=== PATIENT | female | born 1945 | race Caucasian/White ===

== ENCOUNTER 2021-10-29 18:37 | Inpatient (IN) | payer BC ==
[~2021-10-29] VITALS: Ht 165.1 cm; Wt 72.6 kg
[2021-10-29] MEDS ORDERED: BP MEDICATION (18:47)
[2021-10-29 19:22] LABS: HEMATOCRIT 41.6 % (31.2-41.9); MEAN CORPUSCULAR HEMOGLOBIN 28.4 uug (24.7-32.8); MEAN CORPUSCULAR VOLUME 85.3 fL (75.5-95.3); PLATELET COUNT (AUTO) 267 K/uL (179-408)
[2021-10-29 19:42] LABS: ALANINE AMINOTRANSFERASE 77 U/L (14-59); ALKALINE PHOSPHATASE 73 U/L (50-136); ASPARTATE AMINOTRANSFERASE 184 U/L (15-37); BILIRUBIN,DIRECT 0.2 mg/dL (0.0-0.2); BILIRUBIN,TOTAL 0.5 mg/dL (0.2-1.0); CARBON DIOXIDE 26 mmol/L (21-32); CHLORIDE 108 mmol/L (98-107); CREATININE 3.1 mg/dL (0.6-1.3); GLUCOSE 168 mg/dL (74-106); POTASSIUM 3.4 mmol/L (3.5-5.1); TOTAL PROTEIN, SERUM 8.8 g/dL (6.4-8.2)
[2021-10-29 20:07] LABS: UREA NITROGEN, BLOOD 123 mg/dL (7-18)
[2021-10-29] MEDS ORDERED: CEFEPIME HCL 1 G VIAL ONE (21:44)
[2021-10-29] MEDS ORDERED: VANCOMYCIN 1G/D5W 200 ML PIGGYBACK IV ONE ×2 (21:45→22:30)
[2021-10-29] MEDS ORDERED: CEFEPIME HCL 1 G in IV DEXTROSE 5% 50 ML IV ONE (21:45)
[2021-10-29] MEDS ORDERED: IV NS 1000 ML 1,000 ML IV ONE (21:45)
[2021-10-29] MEDS ORDERED: ONDANSETRON 4 MG/2 ML VIAL IV PRN (23:15)
[2021-10-29] MEDS ORDERED: ACETAMINOPHEN 325 MG TABLET PO PRN (23:15)
[2021-10-29] MEDS ORDERED: MAGNESIUM HYDROXIDE 30 ML LIQUID UDC PO PRN (23:15)
[2021-10-29] MEDS ORDERED: MORPHINE SULFATE 2 MG/1 ML DISP.SYRIN IV PRN (23:15)
[2021-10-29] MEDS ORDERED: LORAZEPAM 2 MG/1 ML VIAL IV PRN (23:30)
[2021-10-30 01:55] VITALS: BP 146/70
[2021-10-30] MEDS ORDERED: CLINDAMYCIN HCL 150 MG CAPSULE ONE (03:58)
[2021-10-30] MEDS ORDERED: CLINDAMYCIN PHOSPHATE 600 MG/4 ML VIAL ONE (03:59)
[2021-10-30 04:10] VITALS: BP 130/58
[2021-10-30] MEDS ORDERED: CLINDAMYCIN PHOSPHATE IV 600 MG in IV DEXTROSE 5% 100 ML IV SCH (06:00)
[2021-10-30 06:45] LABS: MEAN CORPUSCULAR HEMOGLOBIN 28.3 uug (24.7-32.8); PLATELET COUNT (AUTO) 232 K/uL (179-408)
[2021-10-30 07:03] LABS: CARBON DIOXIDE 25 mmol/L (21-32); CHLORIDE 113 mmol/L (98-107); CREATININE 2.7 mg/dL (0.6-1.3); GLUCOSE 173 mg/dL (74-106); MAGNESIUM 3.2 mg/dL (1.8-2.4); PHOSPHOROUS 4.5 mg/dL (2.5-4.9); POTASSIUM 3.4 mmol/L (3.5-5.1)
[2021-10-30 07:37] LABS: UREA NITROGEN, BLOOD 120 mg/dL (7-18)
[2021-10-30] MEDS ORDERED: VANCOMYCIN IV 500 MG in IV DEXTROSE 5% 100 ML IV ONE (08:00)
[2021-10-30] MEDS ORDERED: MORPHINE SULFATE 2 MG/1 ML DISP.SYRIN IV PRN (08:00)
[2021-10-30] MEDS ORDERED: PANTOPRAZOLE SODIUM 40 MG VIAL IV SCH (09:00)
[2021-10-30] MEDS ORDERED: POTASSIUM CHLORIDE 50 ML IV SCH (09:45)
[2021-10-30] MEDS: REMEDY ESSENTIAL ZINC PASTE 113 GM TOP SCH ×2 (10:06→20:23)
[2021-10-30] MEDS: HEPARIN SODIUM,PORCINE 5,000 UNITS/ML VIAL SQ SCH ×2 (10:18→20:23)
[2021-10-30] MEDS: CEFEPIME HCL 1 G in IV DEXTROSE 5% 50 ML IV SCH ×2 (10:19→21:09)
[2021-10-30 12:00] VITALS: BP 118/67
[2021-10-30] MEDS ORDERED: POTASSIUM CHLORIDE 20 MEQ TAB.PRT.SR PO ONE (12:30)
[2021-10-30] MEDS: CLINDAMYCIN PHOSPHATE IV 900 MG in IV DEXTROSE 5% 100 ML IV SCH ×2 (14:03→19:57)
[2021-10-30 16:00] VITALS: BP 123/61
[2021-10-30 20:18] VITALS: BP 133/61
[2021-10-31 00:09] VITALS: BP 115/60
[2021-10-31 04:21] VITALS: BP 120/60
[2021-10-31] MEDS: IV NS 1000 ML 1,000 ML IV PRN (05:25)
[2021-10-31] MEDS: CLINDAMYCIN PHOSPHATE IV 900 MG in IV DEXTROSE 5% 100 ML IV SCH (05:25)
[2021-10-31 06:52] LABS: HEMATOCRIT 33.6 % (31.2-41.9); MEAN CORPUSCULAR HEMOGLOBIN 28.2 uug (24.7-32.8); MEAN CORPUSCULAR VOLUME 85.9 fL (75.5-95.3); PLATELET COUNT (AUTO) 243 K/uL (179-408)
[2021-10-31 07:27] LABS: ALANINE AMINOTRANSFERASE 63 U/L (14-59); ALKALINE PHOSPHATASE 60 U/L (50-136); ASPARTATE AMINOTRANSFERASE 116 U/L (15-37); BILIRUBIN,TOTAL 0.4 mg/dL (0.2-1.0); CARBON DIOXIDE 25 mmol/L (21-32); CHLORIDE 116 mmol/L (98-107); CREATININE 2.4 mg/dL (0.6-1.3); GLUCOSE 132 mg/dL (74-106); MAGNESIUM 2.9 mg/dL (1.8-2.4); PHOSPHOROUS 2.9 mg/dL (2.5-4.9); POTASSIUM 3.6 mmol/L (3.5-5.1); TOTAL PROTEIN, SERUM 6.9 g/dL (6.4-8.2); VANCOMYCIN,RANDOM 12.5 ug/mL (18.0-26.0)
[2021-10-31 08:29] LABS: CREATINE KINASE, TOTAL 3320 U/L (26-192)
[2021-10-31] MEDS: CEFEPIME HCL 1 G in IV DEXTROSE 5% 50 ML IV SCH ×2 (08:53→20:51)
[2021-10-31] MEDS: PANTOPRAZOLE SODIUM 40 MG TABLET.DR PO SCH (08:53)
[2021-10-31] MEDS: REMEDY ESSENTIAL ZINC PASTE 113 GM TOP SCH ×2 (08:53→20:53)
[2021-10-31] MEDS: HEPARIN SODIUM,PORCINE 5,000 UNITS/ML VIAL SQ SCH ×2 (08:54→20:53)
[2021-10-31 09:42] LABS: UREA NITROGEN, BLOOD 107 mg/dL (7-18)
[2021-10-31 12:06] VITALS: BP 117/71
[2021-10-31] MEDS: VANCOMYCIN IV 750 MG in IV DEXTROSE 5% 250 ML IV SCH (12:58)
[2021-10-31 16:18] VITALS: BP 139/61
[2021-10-31 16:58] LABS: *AMPHETAMINE, URINE NEGATIVE (NEGATIVE); *CANNABINOID, URINE NEGATIVE (NEGATIVE); *COCCAINE, URINE NEGATIVE (NEGATIVE); *OPIATE, URINE NEGATIVE (NEGATIVE); *PHENCYCLIDINE SCREEN,URINE NEGATIVE (NEGATIVE)
[2021-10-31 17:04] LABS: *CREATININE,URINE 85.9 mg/dL (30-125); *URINE TOTAL PROTEIN RANDOM 89.3 mg/dL (<150/24HR)
[2021-10-31] MEDS: CLOTRIMAZOLE 1% CREAM 30 GM TUBE TOP SCH (17:35)
[2021-10-31 17:43] LABS: *BILIRUBIN,URIN NEGATIVE (NEGATIVE); *BLOOD, URINE 2+ (NEGATIVE); *CLARITY,URINE CLEAR (CLEAR); *COLOR,URINE YELLOW (YELLOW); *KETONES,URINE NEGATIVE (NEGATIVE); *UROBILINOGEN,URINE 0.2 E.U./dl (NORMAL); LEUKOCYTE ESTERASE ,URINE 3+ (NEGATIVE); NITRITE, URINE NEGATIVE (NEGATIVE); PH,URINE 5.5 (5.0-8.0); UGLUCOSE NEGATIVE (NEGATIVE)
[2021-10-31 20:00] VITALS: BP 145/72
[2021-10-31 20:23] LABS: BACTERIA,URINE MODERATE /HPF (NONE SEEN); SQUAMOUS EPITHELIAL CELL,UR FEW /HPF (NONE SEEN)
[2021-11-01] VITALS: BP 152/61
[2021-11-01 04:00] VITALS: BP_SYST 145; BP_SYST 157; BP_DIAS 61; BP_DIAS 92
[2021-11-01] MEDS: PANTOPRAZOLE SODIUM 40 MG TABLET.DR PO SCH (06:12)
[2021-11-01] MEDS: IV NS 1000 ML 1,000 ML IV PRN ×2 (06:28→12:18)
[2021-11-01 07:09] LABS: HEMATOCRIT 34.8 % (31.2-41.9); MEAN CORPUSCULAR VOLUME 85.9 fL (75.5-95.3); PLATELET COUNT (AUTO) 270 K/uL (179-408)
[2021-11-01 07:24] LABS: CARBON DIOXIDE 24 mmol/L (21-32); CHLORIDE 117 mmol/L (98-107); CREATININE 1.9 mg/dL (0.6-1.3); GLUCOSE 188 mg/dL (74-106); POTASSIUM 3.8 mmol/L (3.5-5.1); UREA NITROGEN, BLOOD 67 mg/dL (7-18)
[2021-11-01 07:39] LABS: MAGNESIUM 2.4 mg/dL (1.8-2.4); PHOSPHOROUS 2.5 mg/dL (2.5-4.9)
[2021-11-01] MEDS: CEFEPIME HCL 1 G in IV DEXTROSE 5% 50 ML IV SCH ×2 (08:38→20:30)
[2021-11-01] MEDS: HEPARIN SODIUM,PORCINE 5,000 UNITS/ML VIAL SQ SCH ×2 (08:39→20:35)
[2021-11-01] MEDS: CLOTRIMAZOLE 1% CREAM 30 GM TUBE TOP SCH ×2 (08:41→16:28)
[2021-11-01] MEDS: REMEDY ESSENTIAL ZINC PASTE 113 GM TOP SCH ×2 (08:42→20:38)
[2021-11-01] MEDS: VANCOMYCIN IV 750 MG in IV DEXTROSE 5% 250 ML IV SCH (12:03)
[2021-11-01 12:58] VITALS: BP 131/53
[2021-11-01 16:05] VITALS: BP 139/62
[2021-11-01 18:19] LABS: BAND % (MANUAL) 2 % (0-10); LYMPHOCYTES % (MANUAL) 21 % (20-40); MONOCYTES % (MANUAL) 9 % (2-10); NEUTROPHILS % (MANUAL) 68 % (42-75)
[2021-11-01 20:00] VITALS: BP 159/47
[2021-11-02] VITALS: BP 148/53
[2021-11-02] MEDS: IV NS 1000 ML 1,000 ML IV PRN ×3 (00:30→14:52)
[2021-11-02 04:53] VITALS: BP 155/78
[2021-11-02] MEDS: PANTOPRAZOLE SODIUM 40 MG TABLET.DR PO SCH (06:01)
[2021-11-02 06:55] LABS: HEMATOCRIT 34.4 % (31.2-41.9); MEAN CORPUSCULAR VOLUME 85.4 fL (75.5-95.3); PLATELET COUNT (AUTO) 296 K/uL (179-408)
[2021-11-02 07:09] LABS: CARBON DIOXIDE 24 mmol/L (21-32); CHLORIDE 117 mmol/L (98-107); CREATININE 1.6 mg/dL (0.6-1.3); GLUCOSE 163 mg/dL (74-106); POTASSIUM 4.2 mmol/L (3.5-5.1); UREA NITROGEN, BLOOD 49 mg/dL (7-18)
[2021-11-02] MEDS: CEFEPIME HCL 1 G in IV DEXTROSE 5% 50 ML IV SCH ×2 (08:09→21:58)
[2021-11-02] MEDS: CLOTRIMAZOLE 1% CREAM 30 GM TUBE TOP SCH ×2 (08:10→17:49)
[2021-11-02] MEDS: HEPARIN SODIUM,PORCINE 5,000 UNITS/ML VIAL SQ SCH ×2 (08:10→22:02)
[2021-11-02] MEDS: REMEDY ESSENTIAL ZINC PASTE 113 GM TOP SCH ×2 (08:11→21:00)
[2021-11-02] MEDS: VANCOMYCIN IV 750 MG in IV DEXTROSE 5% 250 ML IV SCH (11:55)
[2021-11-02 11:57] VITALS: BP 136/53
[2021-11-02 17:12] VITALS: BP 146/52
[2021-11-02 20:20] VITALS: BP 156/62
[2021-11-03 00:18] VITALS: BP 155/71
[2021-11-03 04:17] VITALS: BP 152/52
[2021-11-03] MEDS: IV NS 1000 ML 1,000 ML IV PRN ×2 (09:19→18:25)
[2021-11-03] MEDS: PANTOPRAZOLE SODIUM 40 MG TABLET.DR PO SCH (09:23)
[2021-11-03] MEDS: REMEDY ESSENTIAL ZINC PASTE 113 GM TOP SCH ×2 (09:24→20:57)
[2021-11-03] MEDS: CLOTRIMAZOLE 1% CREAM 30 GM TUBE TOP SCH ×2 (09:24→16:50)
[2021-11-03] MEDS: CEFEPIME HCL 1 G in IV DEXTROSE 5% 50 ML IV SCH ×2 (09:24→17:31)
[2021-11-03] MEDS: HEPARIN SODIUM,PORCINE 5,000 UNITS/ML VIAL SQ SCH ×2 (09:24→20:56)
[2021-11-03 10:07] LABS: A/G RATIO 0.6 (0.7-1.7); ALBUMIN 2.2 g/dL (2.9-4.4); ALPHA-1-GLOBULIN 0.4 g/dL (0.0-0.4); ALPHA-2-GLOBULIN 1.3 g/dL (0.4-1.0); BETA GLOBULIN 0.7 g/dL (0.7-1.3); GAMMA GLOBULIN 1.5 g/dL (0.4-1.8); GLOBULIN, TOTAL 3.9 g/dL (2.2-3.9); M-SPIKE Not Observed g/dL (Not Observed)
[2021-11-03 11:55] VITALS: BP 147/68
[2021-11-03] MEDS ORDERED: VANCOMYCIN IV 1,000 MG in IV DEXTROSE 5% 250 ML IV SCH (12:30)
[2021-11-03 16:29] VITALS: BP 145/55
[2021-11-03 20:00] VITALS: BP 151/61
[2021-11-03] MEDS: DOXYCYCLINE HYCLATE 100 MG TABLET PO SCH (20:50)
[2021-11-04 04:15] VITALS: BP 144/50
[2021-11-04] MEDS: CEFEPIME HCL 1 G in IV DEXTROSE 5% 50 ML IV SCH ×2 (05:16→18:15)
[2021-11-04] MEDS: PANTOPRAZOLE SODIUM 40 MG TABLET.DR PO SCH (06:14)
[2021-11-04] MEDS: DOXYCYCLINE HYCLATE 100 MG TABLET PO SCH ×2 (09:21→20:11)
[2021-11-04] MEDS: HEPARIN SODIUM,PORCINE 5,000 UNITS/ML VIAL SQ SCH ×2 (09:22→20:15)
[2021-11-04] MEDS: REMEDY ESSENTIAL ZINC PASTE 113 GM TOP SCH (09:48)
[2021-11-04] MEDS: CLOTRIMAZOLE 1% CREAM 30 GM TUBE TOP SCH ×2 (09:48→17:00)
[2021-11-04 11:30] VITALS: BP 139/66
[2021-11-04] MEDS ORDERED: AMOX-430 PO (12:41)
[2021-11-04] MEDS ORDERED: CLOT30CR24 TOP (12:41)
[2021-11-04] MEDS ORDERED: DOXY100T2 PO (12:41)
[2021-11-04] MEDS ORDERED: ACET325T53 PO (12:41)
[2021-11-04] MEDS ORDERED: MAGN400O6 PO (12:41)
[2021-11-04 16:59] VITALS: BP 155/80
[2021-11-04 20:15] VITALS: BP 177/70
[2021-11-05] MEDS: REMEDY ESSENTIAL ZINC PASTE 113 GM TOP SCH ×2 (03:14→08:40)
[2021-11-05] MEDS: IV NS 1000 ML 1,000 ML IV PRN (03:34)
[2021-11-05 04:21] VITALS: BP 120/56
[2021-11-05] MEDS: CEFEPIME HCL 1 G in IV DEXTROSE 5% 50 ML IV SCH (05:05)
[2021-11-05] MEDS: PANTOPRAZOLE SODIUM 40 MG TABLET.DR PO SCH (07:38)
[2021-11-05 08:12] LABS: HEPATITIS B SURFACE AG Negative (Negative)
[2021-11-05] MEDS: HEPARIN SODIUM,PORCINE 5,000 UNITS/ML VIAL SQ SCH (08:40)
[2021-11-05] MEDS: CLOTRIMAZOLE 1% CREAM 30 GM TUBE TOP SCH (08:40)
[2021-11-05] MEDS: DOXYCYCLINE HYCLATE 100 MG TABLET PO SCH (08:40)
== END 2021-11-05 11:34 | DRG 871 ==
LOC: ER 18:41 → TELE3 23:20 → MEDSURG3 11-03 13:55
PROVIDERS: ADMIT Nurse Practitioner Acute Care; ATTEND Nurse Practitioner Acute Care
PROC: 05HB33Z Insertion of Infusion Device into Right Basilic Vein, Percutaneous Approach (ICD-10-PCS; principal; 2021-11-01)
DX: A41.2 Sepsis due to unspecified staphylococcus (principal); I21.A1 Myocardial infarction type 2; G92.8 Other toxic encephalopathy; N17.0 Acute kidney failure with tubular necrosis; L03.116 Cellulitis of left lower limb; N17.9 Acute kidney failure, unspecified; M62.82 Rhabdomyolysis; E87.0 Hyperosmolality and hypernatremia; L97.329 Non-pressure chronic ulcer of left ankle with unspecified severity; L97.829 Non-pressure chronic ulcer of other part of left lower leg with unspecified severity; R65.20 Severe sepsis without septic shock; E86.1 Hypovolemia; E87.6 Hypokalemia; I73.9 Peripheral vascular disease, unspecified; R74.01 Elevation of levels of liver transaminase levels; E66.9 Obesity, unspecified; Z71.3 Dietary counseling and surveillance; E86.0 Dehydration; I87.2 Venous insufficiency (chronic) (peripheral); M17.12 Unilateral primary osteoarthritis, left knee; E87.8 Other disorders of electrolyte and fluid balance, not elsewhere classified
CPT/HCPCS: 36415; 70030-TC; 70450; 71045; 73700; 76770; 83605; 83735; 83970; 84100; 84155; 84156; 84165; 84300; 84443; 84484; 85025; 86704; 86803; 87040; 87086; 87340; 87400; 87806; 93005; 93307; 97161; A4663; A6209; A6213; C1758; C9113; G0378; J0692; J1644; J3370; J3480; J3490; J7040; J7050